=== PATIENT | male | born 1940 | race Caucasian/White ===

== ENCOUNTER 2017-07-08 21:05 | Emergency (ER) | payer OTHER ==
[~2017-07-08] VITALS: Ht 170.2 cm; Wt 82.2 kg
[2017-07-08 21:06] VITALS: TEMP 37.9; Ht 170.2 cm; Wt 82.2 kg
--- NOTE | 2017-07-08 21:30 | EMERGENCY ROOM VISIT NOTE ---
History Report prepared by Derrick: Victor M Jeff Under the Supervision of: Dr. Uri Cano M.D. First contact with patient: 21:21 Chief Complaint: CARDIAC ASSESSMENT Stated Complaint: CARDIAC/ [place] History of Present Illness The patient is a 76 year old male who presents to the Emergency Room with complaints of constant, general weakness and illness beginning several days ago. The patient reports that he does not feel well and has been experiencing loss of appetite, dizziness, and lightheadedness. The patient denies any cough, urinary symptoms, headache, or pain/swelling in his legs. The patient notes that he has not eaten anything today and also reports that his dizziness is worse when he is standing. According to the nurse, the patient was sent from [facility] after his EKG read revealed a-fib with rvr. The patient denies any generalized pain, chest pain, shortness of breath, heart palpitation, or any recent alcohol consumption. He notes that he has been around others with the flu recently. The patient states that he has been incarcerated at [facility] for several weeks, and has been incarcerated in general for the past year and several months. The patient notes that he recently finished a course of antibiotics to treat a cyst on his buttocks. He reports that the cyst drained on its own and is presently resolved with no pain. Source of History: patient, transfer records Onset: several days ago Position: other (global ) Quality: other (weakness) Timing: constant Associated Symptoms: No chest pain, No SOB Note: Associated Symptoms: Loss of appetite, dizziness, lightheadedness Denies: generalized pain, heart palpitations, any recent alcohol consumption. Review of Systems See HPI for pertinent positives & negatives. A total of 10 systems reviewed and were otherwise negative. Past Medical & Surgical Medical Problems: (1) Cyst of buttocks Old medical records were reviewed. Nurse's notes were reviewed and I agree with. Family History Patient reports no known family medical history. Social History Smokeless Tobacco Use: No Alcohol Use: none Drug Use: none Housing Status: other ([facility]) Current/Historical Medications Scheduled Levofloxacin (Levaquin), 500 MG PO DAILY Sulfa/Trimethoprim (Bactrim Ds 800MG/160MG), 1 TAB PO BID Allergies Coded Allergies: No Known Allergies (Unverified , 07/08/17) Physical Exam Vital Signs Date Time Temp Pulse Resp B/P (MAP) Pulse Ox O2 Delivery O2 Flow Rate FiO2 07/08/17 23:49 80 18 134/87 98 Room Air 07/08/17 21:18 94 07/08/17 21:06 37.9 92 20 160/84 98 Room Air Physical Exam General: Non-ill appearing older male in no acute distress. HEENT: Normal cephalic atraumatic. Pupils are equal round and reactive to light. Extraocular movements are intact. Oropharynx is pink with moist mucous membranes. No swelling of the mouth lips or tongue. Neck: Supple with a midline trachea. No meningeal signs or stiffness, no JVD or bruits. No Stridor. Chest: Clear to auscultation bilaterally. No wheezes or rhonchi. No increased work of breathing. Heart: regular rate and rhythm. Abdomen: Soft nontender, nondistended without rebound guarding or rigidity. Extremities: No cyanosis clubbing or edema. No calf tenderness or assymetry Spine/Back. Non tender to palpation. No CVA tenderness Rectal: Non-tender. Mildly indurated. Not red or warm. Skin: Good turgor without rashes. Neurologic exam: Cranial nerves two through 12 are intact. Motor and sensation are intact and symmetrical throughout. Medical Decision & Procedures ER Provider Diagnostic Interpretation: Chest x-ray per my interpretation reveals no pneumothorax, failure, or infiltrate. CHEST ONE VIEW PORTABLE CLINICAL HISTORY: CHEST PAIN dyspnea COMPARISON STUDY: No previous studies for comparison. FINDINGS: Small parenchymal infiltrate left base. Lungs otherwise appear clear. No significant cardiac enlargement. Left hemidiaphragm is suboptimally seen laterally. Right hemidiaphragm is smooth. IMPRESSION: Poorly defined parenchymal infiltrate left base. The above report was generated using voice recognition software. It may contain grammatical, syntax or spelling errors. Electronically signed by: Silverio Snider M.D. 07/08/2017 10:06 PM Dictated Date/Time: 07/08/2017 10:06 PM Laboratory Results 07/08/17 21:52 Red Blood Count 4.39, Mean Corpuscular Volume 90.7, Mean Corpuscular Hemoglobin 31.0, Mean Corpuscular Hemoglobin Concent 34.2, Mean Platelet Volume 10.8, Neutrophils (%) (Auto) 89.9, Lymphocytes (%) (Auto) 3.2, Monocytes (%) (Auto) 6.5, Eosinophils (%) (Auto) 0.0, Basophils (%) (Auto) 0.1, Neutrophils # (Auto) 12.21, Lymphocytes # (Auto) 0.44, Monocytes # (Auto) 0.89, Eosinophils # (Auto) 0.00, Basophils # (Auto) 0.02 07/08/17 21:52 Test 07/08/17 21:40 07/08/17 21:52 07/08/17 21:59 07/08/17 22:15 Influenza Type A Antigen Neg for Influ A (NEG) Influenza Type B Antigen Neg for Influ B (NEG) White Blood Count 13.60 K/uL (4.8-10.8) Red Blood Count 4.39 M/uL (4.7-6.1) Hemoglobin 13.6 g/dL (14.0-18.0) Hematocrit 39.8 % (42-52) Mean Corpuscular Volume 90.7 fL (80-100) Mean Corpuscular Hemoglobin 31.0 pg (25-34) Mean Corpuscular Hemoglobin Concent 34.2 g/dl (32-36) Platelet Count 287 K/uL (130-400) Mean Platelet Volume 10.8 fL (7.4-10.4) Neutrophils (%) (Auto) 89.9 % Lymphocytes (%) (Auto) 3.2 % Monocytes (%) (Auto) 6.5 % Eosinophils (%) (Auto) 0.0 % Basophils (%) (Auto) 0.1 % Neutrophils # (Auto) 12.21 K/uL (1.4-6.5) Lymphocytes # (Auto) 0.44 K/uL (1.2-3.4) Monocytes # (Auto) 0.89 K/uL (0.11-0.59) Eosinophils # (Auto) 0.00 K/uL (0-0.5) Basophils # (Auto) 0.02 K/uL (0-0.2) RDW Standard Deviation 47.2 fL (36.4-46.3) RDW Coefficient of Variation 14.3 % (11.5-14.5) Immature Granulocyte % (Auto) 0.3 % Immature Granulocyte # (Auto) 0.04 K/uL (0.00-0.02) Anion Gap 10.0 mmol/L (3-11) Est Creatinine Clear Calc Drug Dose 52.8 ml/min Estimated GFR () 64.7 Estimated GFR (Non- 55.8 BUN/Creatinine Ratio 12.9 (10-20) Calcium Level 8.3 mg/dl (8.5-10.1) Total Bilirubin 0.6 mg/dl (0.2-1) Direct Bilirubin 0.2 mg/dl (0-0.2) Aspartate Amino Transf (AST/SGOT) 11 U/L (15-37) Alanine Aminotransferase (ALT/SGPT) 13 U/L (12-78) Alkaline Phosphatase 107 U/L (45-117) Total Protein 8.3 gm/dl (6.4-8.2) Albumin 3.5 gm/dl (3.4-5.0) Lipase 85 U/L (73-393) Thyroid Stimulating Hormone (TSH) 0.624 uIu/ml (0.300-4.500) Bedside Troponin I < 0.030 ng/ml (0-0.045) Bedside Lactic Acid Venous 1.13 mmol/L (0.90-1.70) Laboratory studies as stated above per my review. Medications Administered Medications (Trade) Dose Ordered Sig/Ulysses Route Start Time Stop Time Status Last Admin Dose Admin Sodium Chloride 1,000 ml @ 999 mls/hr Q1H1M STAT IV 07/08/17 21:31 07/08/17 22:31 DC 07/08/17 22:23 999 MLS/HR Levofloxacin (Levaquin Tab) 500 mg NOW STAT PO 07/08/17 23:41 07/08/17 23:42 DC 07/08/17 23:41 500 MG ECG Per My Interpretation Indication: other (Dizziness) Rate (beats per minute): 97 Rhythm: normal sinus Findings: PVC (occasional), no acute ischemic change Comparison ECG Date: no prior available ED Course 2120: Past medical records reviewed. The patient was evaluated in room B11, and a complete history and physical examination were performed. 2130: Ordered Sodium Chloride 1000 ml @ 999 mls/hr IV 1: Ordered Levofloxacin 500mg PO 2350: Ordered Levofloxacin 500mg PO 5: Upon reevaluation, the patient is resting comfortably. I discussed the results and treatment plan with the patient. He verbalized agreement of the treatment plan. The patient was discharged home. Medical Decision Differential Diagnosis Include: Arrhythmia, dehydration, sepsis, infection, abscess, and electrolyte or metabolic abnormality. This patient comes in as described above. He was placed in room B 11. He was sent over from [place] after feeling dizzy and they are concerned that he could be in a fib. I looked at his EKG is actually sinus tachycardia and he looks well and has vague complaints he has low-grade temperature but is normotensive. IV access established blood work was obtained EKG here does not show any arrhythmia or ischemia. He has no elevations cardiac biomarkers. his white count is mildly elevated. He has no significant complaints. he has no cough he has no abdominal pain. He was put on Bactrim yesterday he says . he has had a cyst in his rectal area draining. I did look at this area and there is no drainage at this point, there is no redness or fluctuance mildly indurated but no definite palpable abscess. He has no electrolyte or metabolic abnormalities. Chest x-ray shows no acute infiltrate failure or pneumothorax with exception of some possible infiltrate in the base. In light of this, we will put on Levaquin 500 mg once a day. He was given the first dose here. He feels good would like to go home at this point and there is nothing to to suggest this is a cardiac event. He may be having an early viral illness to it could be related to the rectal drainage of the though at this point he has no complaints in that regard. They are to keep a close eye on this he has been started on Bactrim we will continue Levaquin and return if: worsening symptoms, any new problems or concerns. Follow-up with the [facility] [place] and be rechecked tomorrow Medication Reconcilliation Current Medication List: was personally reviewed by me Blood Pressure Screening Patient's blood pressure: Normal blood pressure Impression Primary Impression: Dizzy Additional Impression: PNA (pneumonia) Scribe Attestation The scribe's documentation has been prepared under my direction and personally reviewed by me in its entirety. I confirm that the note above accurately reflects all work, treatment, procedures, and medical decision making performed by me. Departure Information Dispostion Other ([facility]) Prescriptions Levofloxacin (Levaquin) 500 Mg Tab 500 MG PO DAILY, #10 TAB Prov: Uri Cano M.D. 07/08/17 Referrals No Doctor, Assigned (PCP) Forms IMPORTANT VISIT INFORMATION Patient Instructions My [facility] Additional Instructions Rest. Drink plenty of fluids. Use Levaquin 500 mg once a day for the next 10 days for possible pneumonia Return if: Worsening of symptoms, shortness of breath, fever or chills, abdominal or pain your buttocks, any new problems or concerns Follow-up with your doctor in 1-2 days for recheck Problem Qualifiers
[2017-07-08] MEDS ORDERED: SODIUM CHLORIDE 0.9% 1000ML 1,000 ML IV STA (21:31)
[2017-07-08] MEDS ORDERED: SULF800T23 PO (21:41)
--- NOTE | 2017-07-08 22:08 | DIAGNOSTIC IMAGING REPORT ---
CHEST ONE VIEW PORTABLE CLINICAL HISTORY: CHEST PAIN dyspnea COMPARISON STUDY: No previous studies for comparison. FINDINGS: Small parenchymal infiltrate left base. Lungs otherwise appear clear. No significant cardiac enlargement. Left hemidiaphragm is suboptimally seen laterally. Right hemidiaphragm is smooth. IMPRESSION: Poorly defined parenchymal infiltrate left base. The above report was generated using voice recognition software. It may contain grammatical, syntax or spelling errors. Electronically signed by: Silverio Snider M.D. 07/08/2017 10:06 PM Dictated Date/Time: 07/08/2017 10:06 PM
[2017-07-08 22:12] LABS: BASO % 0.1 %; BASO ABS # 0.02 K/uL (0-0.2); HEMATOCRIT 39.8 % (42-52); HEMOGLOBIN 13.6 g/dL (14.0-18.0); IG# 0.04 K/uL (0.00-0.02); LYMPH % 3.2 %; LYMPH ABS # 0.44 K/uL (1.2-3.4); MEAN CELL VOLUME 90.7 fL (80-100); MEAN CORPUSCULAR HGB CONC 34.2 g/dl (32-36); MEAN PLATELET VOLUME 10.8 fL (7.4-10.4); MONO % 6.5 %; MONO ABS # 0.89 K/uL (0.11-0.59); NEUT % 89.9 %; NEUT ABS # 12.21 K/uL (1.4-6.5); PLATELET COUNT 287 K/uL (130-400); RED CELL DISTRIBUTION WIDTH CV 14.3 % (11.5-14.5); RED CELL DISTRIBUTION WIDTH SD 47.2 fL (36.4-46.3)
[2017-07-08 22:45] LABS: ALBUMIN 3.5 gm/dl (3.4-5.0); TOTAL PROTEIN 8.3 gm/dl (6.4-8.2)
[2017-07-08 22:52] LABS: CALCIUM 8.3 mg/dl (8.5-10.1); CREATININE 1.26 mg/dl (0.60-1.40); POTASSIUM 4.3 mmol/L (3.5-5.1)
[2017-07-08 22:53] LABS: INFLUENZA B ANTIGEN Neg for Influ B (NEG)
[2017-07-08] MEDS ORDERED: LEVO-366 PO (23:41)
[2017-07-08] MEDS ORDERED: LEVOFLOXACIN 500 MG TAB PO STA (23:41)
[2017-07-08 23:49] VITALS: BP 134/87; PULSE 80; O2SAT 98
[2017-07-08] MEDS ORDERED: LEVOFLOXACIN 250 MG TAB ONE (23:51)
== END 2017-07-09 00:05 | disposition home or self-care (01) ==
LOC: C.EDB 21:07
DX: R42 Dizziness and giddiness (principal); J18.9 Pneumonia, unspecified organism